=== PATIENT | male | born 1980 | race Caucasian/White ===

== ENCOUNTER 2019-04-16 06:01 | Emergency (ER) | payer MEDICAID ==
[~2019-04-16] VITALS: Ht 188 cm; Wt 88.6 kg
[2019-04-16 06:06] VITALS: Ht 188 cm; Wt 88.6 kg
[2019-04-16] MEDS ORDERED: ONDANSETRON 4 MG INJ IV STA (06:56)
[2019-04-16] MEDS ORDERED: KETOROLAC 30 MG INJ IV STA (06:56)
[2019-04-16] MEDS ORDERED: SOD CHLORIDE 0.9% 1,000 ML IV STA (06:56)
[2019-04-16] MEDS ORDERED: morphine 4 MG/ML VIAL IV STA (07:55)
[2019-04-16 08:55] VITALS: BP 129/82; PULSE 76; RESP 19
[2019-04-16] MEDS ORDERED: HYDROmorphONE 0.5 MG/0.5 ML SYG IM STA (08:59)
[2019-04-16] MEDS ORDERED: HYDROmorphONE 0.5 MG/0.5 ML SYG IV STA (09:05)
[2019-04-16] MEDS ORDERED: IBUP-1542 PO (09:45)
[2019-04-16] MEDS ORDERED: AZIT250T PO (09:46)
--- NOTE | 2019-04-16 09:58 | ERD ---
ER Documentation Chief Complaint Chief Complaint L inguinal hernia pain radiating to L leg since 0100 w/vomiting HPI Patient is a 38-year-old male who presents the ER for concerns of left groin pain which started at 1 AM this morning. Patient states he woke up in the middle of the night with pain. Patient reports vomiting secondary to the pain. Patient denies any falls or trauma. Patient states that he is active in sports any does heavy lifting. Patient states he has had intermittent pain in his left groin for the last 2 to 3 weeks. Patient has already seen a specialist and had ultrasounds done. Patient states his testicular ultrasound was negative. He states his inguinal ultrasound did show signs of a hernia. Patient states that his specialist did manipulate the area. Patient denies any testicular pain at this time. He denies any penile discharge. Patient is sexually active with his girlfriend. Patient denies any fevers or chills. Patient denies any hip pain. Patient denies any abdominal pain. Patient denies any chest pain or shortness of breath or LOC. ROS All systems reviewed and are negative except as per history of present illness. Medications Home Meds Active Scripts Ibuprofen* (Motrin*) 600 Mg Tab, 600 MG PO Q6, #30 TAB Prov:STEPHEN JOYCE PA-C 04/16/19 Discontinued Scripts Azithromycin* (Zithromax*) 250 Mg Tablet, 250 MG PO .ZPACK DIRECTED, #6 TAB TAKE 500 MG (2 TABS) THE FIRST DAY THEN 250 MG (1 TAB) DAYS 2-5 Prov:STEPHEN JOYCE PA-C 04/16/19 Allergies Allergies: Coded Allergies: No Known Allergy (Unverified , 04/16/19) PMhx/Soc Medical and Surgical Hx: pt denies Surgical Hx Hx Miscellaneous Medical Probl: Yes (inguinal hernia) Hx Alcohol Use: Yes (rarely) Hx Substance Use: No Hx Tobacco Use: No Smoking Status: Never smoker FmHx Family History: No diabetes Physical Exam Vitals Vital Signs Date Temp Pulse Resp B/P (MAP) Pulse Ox O2 O2 Flow FiO2 Time Delivery Rate 04/16/19 97.9 76 19 129/82 100 Room Air 08:55 (98) 04/16/19 98.4 70 20 112/76 99 06:06 (88) Physical Exam GENERAL: Well-developed, well-nourished male. Appears uncomfortable secondary to pain. Speaking in full sentences. HEAD: Normocephalic, atraumatic. EYES: Pupils are equally reactive bilaterally. EOMs grossly intact. No conjunctival erythema. NECK: Supple. No meningismus. Normal range of motion of the neck. LUNG: Clear to auscultation bilaterally. No rhonchi, wheezing, rales or coarse breath sounds. HEART: Regular rate and rhythm. No murmurs, rubs or gallops. ABDOMEN: Soft, nontender, and nondistended. Positive bowel sounds in all four quadrants. No rebound tenderness, no guarding. (-) McBurney's point tenderness. No CVA tenderness. 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 No penile discharge noted. Normal scrotum without any masses, tenderness, swelling or erythema. Tender to palpation of the left inguinal region. No obvious bulging inguinal hernias noted. No erythema, warmth or redness noted in the inguinal folds. HIP: No obvious redness, swelling or warmth. Able to externally and internally rotate without difficulty. EXTREMITIES: Equal pulses bilaterally. No peripheral clubbing, cyanosis or edema. No unilateral leg swelling. NEUROLOGIC: Alert and oriented. Moving all four extremities without any difficulty. Normal speech. Steady gait. SKIN: Normal color. Warm and dry. No rashes or lesions. Result Diagram: 04/16/19 0704 04/16/19 0704 Results 24 hrs Laboratory Tests Test 04/16/19 07:04 White Blood Count 16.9 10^3/ul Red Blood Count 4.81 10^6/ul Hemoglobin 15.0 g/dl Hematocrit 44.5 % Mean Corpuscular Volume 92.5 fl Mean Corpuscular Hemoglobin 31.2 pg Mean Corpuscular Hemoglobin Concent 33.7 g/dl Red Cell Distribution Width 11.9 % Platelet Count 270 10^3/UL Mean Platelet Volume 9.6 fl Immature Granulocytes % 0.500 % Neutrophils % 83.7 % Lymphocytes % 9.5 % Monocytes % 5.2 % Eosinophils % 0.7 % Basophils % 0.4 % Nucleated Red Blood Cells % 0.0 /100WBC Immature Granulocytes # 0.090 10^3/ul Neutrophils # 14.1 10^3/ul Lymphocytes # 1.6 10^3/ul Monocytes # 0.9 10^3/ul Eosinophils # 0.1 10^3/ul Basophils # 0.1 10^3/ul Nucleated Red Blood Cells # 0.0 10^3/ul Urine Color YELLOW Urine Clarity TURBID Urine pH 8.0 Urine Specific [place] 1.018 Urine Ketones NEGATIVE mg/dL Urine Nitrite NEGATIVE mg/dL Urine Bilirubin NEGATIVE mg/dL Urine Urobilinogen NEGATIVE mg/dL Urine Leukocyte Esterase NEGATIVE Susu/ul Urine Microscopic RBC 5 /HPF Urine Microscopic WBC 28 /HPF Urine Amorphous Crystals MODERATE /HPF Urine Bacteria MODERATE /HPF Urine Hemoglobin NEGATIVE mg/dL Urine Glucose NEGATIVE mg/dL Urine Total Protein NEGATIVE mg/dl Sodium Level 143 mmol/L Potassium Level 4.1 mmol/L Chloride Level 102 mmol/L Carbon Dioxide Level 30 mmol/L Anion Gap 11 Blood Urea Nitrogen 10 mg/dl Creatinine 0.83 mg/dl Est Glomerular Filtrat Rate mL/min > 60 mL/min Glucose Level 128 mg/dl Calcium Level 10.1 mg/dl Total Bilirubin 0.3 mg/dl Direct Bilirubin 0.00 mg/dl Indirect Bilirubin 0.3 mg/dl Aspartate Amino Transf (AST/SGOT) 25 IU/L Alanine Aminotransferase (ALT/SGPT) 38 IU/L Alkaline Phosphatase 100 IU/L Total Protein 7.7 g/dl Albumin 4.8 g/dl Globulin 2.90 g/dl Albumin/Globulin Ratio 1.65 Lipase 109 U/L Current Medications Medications Dose Sig/Von Start Time Status Last (Trade) Ordered Route PRN Stop Time Admin Dose Reason Admin Sodium 1,000 ml @ Q1H STAT 04/16/19 DC 04/16/19 Chloride 1,000 mls/hr IV 06:56 07:11 04/16/19 07:55 Ondansetron 4 mg ONCE STAT 04/16/19 DC 04/16/19 HCl (Zofran IV 06:56 07:11 Inj) 04/16/19 06:58 Ketorolac 30 mg ONCE STAT 04/16/19 DC 04/16/19 Tromethamine IV 06:56 07:11 (Toradol) 04/16/19 06:58 Morphine 4 mg ONCE STAT 04/16/19 DC 04/16/19 Sulfate IV 07:55 08:00 (morphine) 04/16/19 07:57 0.5 mg ONCE STAT 04/16/19 DC Hydromorphone IM 08:59 HCl 04/16/19 09:50 (Dilaudid) 0.5 mg ONCE STAT 04/16/19 DC 04/16/19 Hydromorphone IV 09:05 09:07 HCl 04/16/19 09:06 (Dilaudid) Ceftriaxone 250 mg ONCE ONCE 04/16/19 DC Sodium IM 10:00 (Rocephin) 04/16/19 10:00 Ceftriaxone 250 mg ONCE ONCE 04/16/19 Cancel Sodium IVPB 10:00 (Rocephin) 04/16/19 10:01 1,000 mg ONCE ONCE 04/16/19 DC 04/16/19 Azithromycin PO 10:00 09:58 (Zithromax) 04/16/19 10:03 Ceftriaxone 50 ml @ ONCE ONCE 04/16/19 Sodium 250 100 mls/hr IVPB 10:30 mg/ Sodium 04/16/19 10:59 Chloride Procedures/MDM ED COURSE: The patient was stable throughout ED course. I kept the patient and/or family informed of laboratory and diagnostic imaging results throughout the ED course. DIAGNOSTIC IMAGING: Read by radiologist. t: JONATHAN JOYCE : 1980 Age: 38 Sex: M MR #: [id number] DOS: 04/16/19 0656 Ordering MD: STEPHEN JOYCE PA-C Location: [facility] Room/Bed: PROCEDURE: US left inguinal region CLINICAL INDICATION: Left inguinal pain TECHNIQUE: Multiple sonographic images of the left inguinal region were obtained utilizing a linear array transducer with grayscale and color-flow and a Doppler imaging. The images were reviewed on a high-resolution PACS workstation. The procedure was performed with and without Valsalva maneuver. COMPARISON: No prior studies are available for comparison. FINDINGS: No focal mass or fluid collection visualized. No evidence of hernia. There is a small 1.1 cm lymph node in the left inguinal region. RPTAT: AA IMPRESSION: No focal mass or fluid collection visualized. No evidence of hernia. Small lymph node in the left inguinal region. .Tray Pond MD, MD Date Time Electronically viewed and signed by .Tray Pond MD, on 04/16/2019 07:45 .S/ CC: STEPHEN JOYCE PA-C [id number] atient: JONATHAN JOYCE : 1980 Age: 38 Sex: M MR #: [id number] DOS: 04/16/19 0801 Ordering MD: STEPHEN JOYCE PA-C Location: [facility] Room/Bed: PROCEDURE: CT abdomen and pelvis without contrast. CLINICAL INDICATION: Left inguinal pain and vomiting TECHNIQUE: Continues 2.5 mm axial images were obtained from the domes of the diaphragms to the inferior pubic rami. No oral or intravenous contrast was administered. The calculated dose length product (DLP) = 958.76 mGy-cm. Exam CTDlvol = 15.59 mGy. One or more of the following dose reduction techniques were used: Automated exposure control, adjustment of the mA and or KV according to patient size, or use of iterative reconstruction technique. One or more of the following dose reduction techniques were used: Automated exposure control, adjustment of the mA and or KV according to patient size, or use of iterative reconstruction technique. DICOM images are available. COMPARISON: None. FINDINGS: Lung bases are clear. No pleural or pericardial fluid is seen. There is mild fatty change of the liver. Otherwise, liver, gallbladder, pancreas, spleen, adrenals, and kidneys are within normal limits on this noncontrast study. There is no renal calculi or obstructive uropathy. Aorta is normal in caliber. No pathologically enlarged mesenteric lymph nodes are seen. Stomach and small bowel loops are within normal limits. There is no small bowel dilatation or obstruction. No free fluid, free air, abscess is noted in the upper abdomen. There is tiny periumbilical hernia containing fat. CT pelvis: Images through the pelvis demonstrate no free fluid, free air, abscess. Bladder is partially distended grossly unremarkable. Prostate and seminal vesicles are unremarkable. Evaluation of the colon demonstrates no diverticulosis, diverticulitis or acute colitis. Normal appendix and terminal ileum are identified. There are no pathologically enlarged iliac chain lymph nodes. There is a tiny left inguinal hernia containing fat. No destructive bony lesions are seen. There are small posterior broad-based disc bulges at L4-5 end L5-S1. IMPRESSION: 1. Tiny left inguinal hernia containing fat. There are no bowel loops within the hernia.. 2. Mild fatty change of the liver. 3. Normal appendix and terminal ileum. 4. No renal calculi or obstructive uropathy. 5. No small bowel dilatation or obstruction. 6. Questionable mild thickening of the distal esophagus may suggest esophagitis. 7. Tiny periumbilical hernia containing fat. RPTAT: HH .Mich Lacey MD, Date Time Electronically viewed and signed by .Mich Lacey MD, on 04/16/2019 08:59 .W/ CC: STEPHEN JOYCE PA-C [id number] PROCEDURES: None. MEDICATIONS GIVEN: IV fluids, Zofran, Toradol, morphine, Dilaudid, ceftriaxone, azithromycin Patient tolerated medication well with no adverse reactions. MEDICAL DECISION MAKING: This is a 38-year-old male with a history of left inguinal hernia, presents the ER for concerns of left-sided groin pain which started around 1 AM this morning. Patient also reports associated vomiting secondary to pain. Vital signs were reviewed. Patient is afebrile. Patient was not hypoxic. On exam, patient had tenderness to palpation in the left inguinal region. No erythema, warmth or swelling was noted. No obvious palpable inguinal hernias are noted. IV line was established. Blood work was obtained. CBC showed WBC count of 16.9. WBC count likely increased secondary to vomiting and stress reaction. CMP showed no evidence of electrolyte abnormalities, severe acidosis, alkalosis, renal failure, or liver disease. Lipase showed no evidence of acute pancreatitis. UA showed 28 WBCs. Patient was given IV fluids, Zofran, Toradol. Ultrasound showed: Soft tissue ultrasound of the left groin showed no focal mass or fluid collection. No evidence of hernia. Small lymph node in the left inguinal region was noted. Lymph node measured 1.1 cm. Upon reexamination, patient continued to have pain. Patient was given morphine and then Dilaudid. Patient did have some improvement in his pain after receiving these medications. CT imaging was ordered and showed: 1. Tiny left inguinal hernia containing fat. There are no bowel loops within the hernia. 2. Mild fatty change of the liver. 3. Normal appendix and terminal ileum. 4. No renal calculi or obstructive uropathy. 5. No small bowel dilatation or obstruction. 6. Questionable mild thickening of the distal esophagus may suggest esophagitis. 7. Tiny periumbilical hernia containing fat. Case was discussed with supervising physician, Dr. Barraza. Dr. Barraza also spoke with patient and examined the patient. At this time, there is no evidence of incarcerated or strangulate hernia. Testicular exam was normal per Dr. Barraza. Patient's urine did show positive WBCs. Patient states that he is sexually active with his girlfriend. Patient denies any penile pain or discharge. Patient denies any testicular pain. Dr. Barraza advised me to treat patient for urethritis at this time. Urine was sent for gonorrhea and chlamydia testing. Results pending. At this time, the patient's presentation is consistent with a small left inguinal hernia containing fat and urethritis. Differential diagnosis included was not limited to strain related hernia, incarcerated hernia, coronary s yndrome, AAA, mesenteric ischemia, lower lobe pneumonia, DKA, bowel perforation, cholecystitis, choledocholithiasis, ascending cholangitis, hepatic abscess, pancreatitis, PUD, gastritis, GERD, splenic rupture, diverticulitis, UTI, pyelonephritis, nephrolithiasis, appendicitis, constipation, testicular torsion. Patient was advised to follow-up with his general surgeon for further management of her hernia. PRESCRIPTIONS: Ibuprofen DISCHARGE: At this time, patient is stable for discharge and outpatient management. I have instructed the patient to follow-up with his/her primary care physician in 1-2 days. I have instructed the patient to promptly return to the ER at any time for any new or worsening symptoms including increased pain, nausea, vomiting, diarrhea, fever, weakness or LOC. The patient and/or family expressed understanding of and agreement with this plan. All questions were answered. Home care instructions were provided. Disclaimer: Inadvertent spelling and grammatical errors are likely due to EHR/dictation software use and do not reflect on the overall quality of patient care. Also, please note that the electronic time recorded on this note does not necessarily reflect the actual time of the patient encounter. Departure Diagnosis: Primary Impression: Left groin pain Additional Impression: Leukocytes in urine Condition: Fair Patient Instructions: Hernia (Inguinal, Ventral, Umbilical) Referrals: [facility] YOU HAVE RECEIVED A MEDICAL SCREENING EXAM AND THE RESULTS INDICATE THAT YOU DO NOT HAVE A CONDITION THAT REQUIRES URGENT TREATMENT IN THE EMERGENCY DEPARTMENT. FURTHER EVALUATION AND TREATMENT OF YOUR CONDITION CAN WAIT UNTIL YOU ARE SEEN IN YOUR DOCTORS OFFICE WITHIN THE NEXT 1-2 DAYS. IT IS YOUR RESPONSIBILITY TO MAKE AN APPOINTMENT FOR FOLOW-UP CARE. IF YOU HAVE A PRIMARY DOCTOR --you should call your primary doctor and schedule an appointment IF YOU DO NOT HAVE A PRIMARY DOCTOR YOU CAN CALL OUR PHYSICIAN REFERRAL HOTLINE AT IF YOU CAN NOT AFFORD TO SEE A PHYSICIAN YOU CAN CHOSE FROM THE FOLLOWING [facility] [address] [facility]. [facility] [address] [facility] [facility] [address] [facility] [address] [facility] [address] [facility]. [facility] [address] [facility]. [facility] YOU HAVE RECEIVED A MEDICAL SCREENING EXAM AND THE RESULTS INDICATE THAT YOU DO NOT HAVE A CONDITION THAT REQUIRES URGENT TREATMENT IN THE EMERGENCY DEPARTMENT. FURTHER EVALUATION AND TREATMENT OF YOUR CONDITION CAN WAIT UNTIL YOU ARE SEEN IN YOUR DOCTORS OFFICE WITHIN THE NEXT 1-2 DAYS. IT IS YOUR RESPONSIBILITY TO MAKE AN APPOINTMENT FOR FOLOW-UP CARE. IF YOU HAVE A PRIMARY DOCTOR --you should call your primary doctor and schedule and appointment IF YOU DO NOT HAVE A PRIMARY DOCTOR YOU CAN CALL OUR PHYSICIAN REFERRAL HOTLINE AT . IF YOU CAN NOT AFFORD TO SEE A PHYSICIAN YOU CAN CHOSE FROM THE FOLLOWING [facility] INSTITUTIONS: [facility] [address] [place] [address] [facility] [address] [place] [address] [place] [address] Additional Instructions: Follow up with your surgeon for further management of your groin. Call your primary care doctor TOMORROW for an appointment during the next 1-2 d ays.See the doctor sooner or return here if your condition worsens before your appointment time. STEPHEN JOYCE PA-C April 16, 2019 09:58
[2019-04-16] MEDS ORDERED: AZITHROMYCIN 500 MG TAB PO ONE (10:00)
[2019-04-16] MEDS ORDERED: CEFTRIAXONE 250 MG INJ IM ONE (10:00)
[2019-04-16] MEDS ORDERED: CEFTRIAXONE 250 MG INJ IVPB ONE (10:00)
[2019-04-16] MEDS ORDERED: CEFTRIAXONE IVPB ONE (10:30)
[2019-04-16] MEDS ORDERED: SOD CHLORIDE 0.9% IVPB ONE (10:30)
== END 2019-04-16 09:46 | disposition home or self-care (01) ==
LOC: FTE 06:01
DX: D72.829 Elevated white blood cell count, unspecified (principal)
CPT/HCPCS: 36415; 74176; 76536; 80053; 81001; 83690; 85025; 87591; 96361; 96365; 96375; J0696; J1170; J1885; J2270; J2405; J7030; Z7502; Z7610